=== PATIENT | female | born 1980 | race Caucasian/White ===

== ENCOUNTER → 2024-08-25 10:49 | Outpatient (REF) | payer OTHER, SELFPAY ==
[2024-08-25 13:32] LABS: Rubella Positive
[2024-08-25 13:55] LABS: Hepatitis B Surface Antibody Negative
[2024-08-25 15:47] LABS: Mumps Virus IgG Positive
[2024-08-27 20:52] LABS: Quantiferon Mitogen minus NIL 9.99 IU/mL; Quantiferon NIL 0.01 IU/mL; Quantiferon Plus TB1 minus NIL 0.01 IU/mL (<=0.34); Quantiferon Plus TB2 minus NIL 0.01 IU/mL (<=0.34); Quantiferon TB Gold Plus Negative (Negative)
== END ==
LOC: OHS 10:49
PROVIDERS: ATTENDING PHYSICIAN Nurse Practitioner Family
DX: Z23 Encounter for immunization (principal)
CPT/HCPCS: 36415; 86480; 86706; 86735; 86762; 86765; 86787